=== PATIENT | male | born 1995 | race Caucasian/White ===

== ENCOUNTER → 2020-08-16 11:33 | Outpatient (BNVA) | payer MEDICARE, MEDICAID, SELFPAY | PROVIDERS: Family Provider Family Medicine; PCP Family Medicine; Visit Provider Specialist | DX: G40.309 Generalized idiopathic epilepsy and epileptic syndromes, not intractable, without status epilepticus (principal); Q87.0 Congenital malformation syndromes predominantly affecting facial appearance | CPT/HCPCS: 36415; 80164; 84460; 85025; 99204 ==

== ENCOUNTER 2020-08-16 14:49 | Outpatient (CLI) | payer MEDICARE, MEDICAID, SELFPAY ==
[2020-08-16 15:18] LABS: Basophils % 0.2 %; Eosinophils % 0.2 %; Hematocrit 44.9 % (42.0-52.0); Lymphocytes % 29.1 %; Mean Corpuscular HGB Conc 33.4 g/dL (30.0-36.0); Mean Corpuscular Hemoglobin 32.3 pg (28.0-34.0); Mean Corpuscular Volume 96.8 fL (80-94); Mean Platelet Volume 10.3 fL (7.4-10.4); Monocytes # 0.7 10^3/uL (0.2-0.9); Monocytes % 6.6 %; Neutrophils # 6.61 10^3/uL (1.8-7.7); Neutrophils % 63.6 %; Nucleated Red Blood Cells % 0 %; Platelet Count 184 10^3/cmm (130-400); Red Blood Count 4.64 10^6/uL (4.1-5.3); Red Cell Distribution Width 11.4 % (12.1-15.1); White Blood Count 10.4 10^3/uL (4.0-10.0)
[2020-08-16 15:35] LABS: Alanine Aminotransferase 20 U/L (0-41)
[2020-08-16 15:46] LABS: Valproic Acid Level 93.8 ug/mL (50-100)
== END 2020-08-16 14:50 | disposition home or self-care (01) ==
PROVIDERS: PCP Family Medicine; Visit Provider Specialist
DX: G40.309 Generalized idiopathic epilepsy and epileptic syndromes, not intractable, without status epilepticus (principal); Q87.0 Congenital malformation syndromes predominantly affecting facial appearance
CPT/HCPCS: 36415; 80164; 84460; 85025

== ENCOUNTER 2021-07-24 13:07 | Outpatient (CLI) | payer MEDICARE, MEDICAID, SELFPAY | END 2021-07-24 13:08 | disposition home or self-care (01) | PROVIDERS: PCP Family Medicine; Visit Provider Emergency Medicine | DX: I96 Gangrene, not elsewhere classified (principal); L89.312 Pressure ulcer of right buttock, stage 2 | CPT/HCPCS: 11042; 87070; 87077; 87176; 87186; 87205; G0463 ==

== ENCOUNTER 2021-07-31 13:37 | Outpatient (CLI) | payer MEDICARE, MEDICAID, SELFPAY | END 2021-07-31 13:38 | disposition home or self-care (01) | LOC: WOUND 13:38 | PROVIDERS: PCP Family Medicine; Visit Provider Emergency Medicine | DX: I96 Gangrene, not elsewhere classified (principal); L89.312 Pressure ulcer of right buttock, stage 2 | CPT/HCPCS: 11042 ==

== ENCOUNTER 2021-08-07 13:31 | Outpatient (CLI) | payer MEDICARE, MEDICAID, SELFPAY | END 2021-08-07 13:32 | disposition home or self-care (01) | LOC: WOUND 13:34 | PROVIDERS: PCP Family Medicine; Visit Provider Nurse Practitioner Family | DX: L89.313 Pressure ulcer of right buttock, stage 3 (principal) | CPT/HCPCS: 11042 ==

== ENCOUNTER 2021-08-14 14:41 | Outpatient (CLI) | payer MEDICARE, MEDICAID, SELFPAY | END 2021-08-14 14:42 | disposition home or self-care (01) | LOC: WOUND 14:43 | PROVIDERS: PCP Family Medicine; Visit Provider Emergency Medicine | DX: L89.313 Pressure ulcer of right buttock, stage 3 (principal) | CPT/HCPCS: 11042 ==

== ENCOUNTER → 2021-08-16 11:14 | Outpatient (BNVA) | payer MEDICARE, MEDICAID, SELFPAY | PROVIDERS: PCP Family Medicine; Visit Provider Specialist | DX: G40.309 Generalized idiopathic epilepsy and epileptic syndromes, not intractable, without status epilepticus (principal); Q87.0 Congenital malformation syndromes predominantly affecting facial appearance | CPT/HCPCS: 99214 ==

== ENCOUNTER 2021-08-21 14:45 | Outpatient (CLI) | payer MEDICARE, MEDICAID, SELFPAY | END 2021-08-21 14:46 | disposition home or self-care (01) | LOC: WOUND 14:46 | PROVIDERS: PCP Family Medicine; Visit Provider Nurse Practitioner Family | DX: L89.313 Pressure ulcer of right buttock, stage 3 (principal) | CPT/HCPCS: 11042; A6212 ==

== ENCOUNTER 2021-08-28 14:38 | Outpatient (CLI) | payer MEDICARE, MEDICAID, SELFPAY | END 2021-08-28 14:39 | disposition home or self-care (01) | LOC: WOUND 14:39 | PROVIDERS: PCP Family Medicine; Visit Provider Nurse Practitioner Family | DX: L89.313 Pressure ulcer of right buttock, stage 3 (principal) | CPT/HCPCS: 11042 ==

== ENCOUNTER 2021-09-05 14:03 | Outpatient (CLI) | payer MEDICARE, MEDICAID, SELFPAY | END 2021-09-05 14:04 | disposition home or self-care (01) | LOC: WOUND 14:04 | PROVIDERS: PCP Family Medicine; Visit Provider Nurse Practitioner Family | DX: L89.313 Pressure ulcer of right buttock, stage 3 (principal) | CPT/HCPCS: 11042 ==

== ENCOUNTER 2021-09-12 13:55 | Outpatient (CLI) | payer MEDICARE, MEDICAID, SELFPAY | END 2021-09-12 13:56 | disposition home or self-care (01) | LOC: WOUND 13:56 | PROVIDERS: PCP Family Medicine; Visit Provider Emergency Medicine | DX: L89.313 Pressure ulcer of right buttock, stage 3 (principal) | CPT/HCPCS: 11043; A6446 ==

== ENCOUNTER 2021-09-19 13:02 | Outpatient (CLI) | payer MEDICARE, MEDICAID, SELFPAY | END 2021-09-19 13:03 | disposition home or self-care (01) | LOC: WOUND 13:05 | PROVIDERS: PCP Family Medicine; Visit Provider Emergency Medicine | DX: L89.313 Pressure ulcer of right buttock, stage 3 (principal) | CPT/HCPCS: 99213 ==

== ENCOUNTER 2021-09-26 13:46 | Outpatient (CLI) | payer MEDICARE, MEDICAID, SELFPAY | END 2021-09-26 13:47 | disposition home or self-care (01) | LOC: WOUND 13:47 | PROVIDERS: PCP Family Medicine; Visit Provider Emergency Medicine | DX: L89.313 Pressure ulcer of right buttock, stage 3 (principal) | CPT/HCPCS: 11042 ==

== ENCOUNTER 2021-10-03 13:52 | Outpatient (CLI) | payer MEDICARE, MEDICAID, SELFPAY | END 2021-10-03 13:53 | disposition home or self-care (01) | LOC: WOUND 13:53 | PROVIDERS: PCP Family Medicine; Visit Provider Emergency Medicine | DX: L89.313 Pressure ulcer of right buttock, stage 3 (principal) | CPT/HCPCS: 11042 ==

== ENCOUNTER 2021-10-10 13:05 | Outpatient (CLI) | payer MEDICARE, MEDICAID, SELFPAY | END 2021-10-10 13:06 | disposition home or self-care (01) | LOC: WOUND 13:06 | PROVIDERS: PCP Family Medicine; Visit Provider Emergency Medicine | DX: L89.313 Pressure ulcer of right buttock, stage 3 (principal) | CPT/HCPCS: 11042 ==

== ENCOUNTER 2021-10-17 13:16 | Outpatient (CLI) | payer MEDICARE, MEDICAID, SELFPAY | END 2021-10-17 13:17 | disposition home or self-care (01) | LOC: WOUND 13:17 | PROVIDERS: PCP Family Medicine; Visit Provider Emergency Medicine | DX: L89.313 Pressure ulcer of right buttock, stage 3 (principal) | CPT/HCPCS: 11042 ==

== ENCOUNTER 2021-10-24 13:12 | Outpatient (CLI) | payer MEDICARE, MEDICAID, SELFPAY | END 2021-10-24 13:13 | disposition home or self-care (01) | LOC: WOUND 13:13 | PROVIDERS: PCP Family Medicine; Visit Provider Emergency Medicine | DX: L89.313 Pressure ulcer of right buttock, stage 3 (principal) | CPT/HCPCS: 99212; A6212 ==

== ENCOUNTER 2021-10-31 11:02 | Outpatient (CLI) | payer MEDICARE, MEDICAID, SELFPAY | END 2021-10-31 11:03 | disposition home or self-care (01) | LOC: WOUND 11:03 | PROVIDERS: PCP Family Medicine; Visit Provider Thoracic Surgery (Cardiothoracic Vascular Surgery) | DX: L89.313 Pressure ulcer of right buttock, stage 3 (principal) | CPT/HCPCS: 99212 ==

== ENCOUNTER → 2022-04-17 14:56 | Outpatient (BNVA) | payer MEDICARE, MEDICAID, SELFPAY | PROVIDERS: PCP Family Medicine; Visit Provider Specialist | DX: G40.309 Generalized idiopathic epilepsy and epileptic syndromes, not intractable, without status epilepticus (principal); Q87.0 Congenital malformation syndromes predominantly affecting facial appearance | CPT/HCPCS: 95816 ==

== ENCOUNTER → 2022-08-15 10:17 | Outpatient (BNVA) | payer MEDICARE, MEDICAID, SELFPAY | PROVIDERS: PCP Family Medicine; Visit Provider Specialist | DX: G40.309 Generalized idiopathic epilepsy and epileptic syndromes, not intractable, without status epilepticus (principal) | CPT/HCPCS: 99213 ==

== ENCOUNTER → 2023-08-14 10:55 | Outpatient (BNVA) | payer MEDICARE, MEDICAID, SELFPAY | PROVIDERS: PCP Family Medicine; Visit Provider Specialist | DX: G40.309 Generalized idiopathic epilepsy and epileptic syndromes, not intractable, without status epilepticus (principal) | CPT/HCPCS: 99214 ==

== ENCOUNTER 2023-10-29 12:53 | Emergency (ER) | payer MEDICARE, MEDICAID, SELFPAY ==
[2023-10-29] VITALS (35 sets, daily range): BP systolic 96–142; BP diastolic 67–92; PULSE 76–119; RESP 16–39; TEMP 36.7; O2SAT 96–100; BMI 19.5
[2023-10-29] MEDS: levETIRAcetam 1,000 MG/100 ML PREMIX 400 MG IV (13:19)
--- NOTE | 2023-10-29 13:34 | ED_ITS ---
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 Patient had seizures today they had used the rest of his rescue meds last night and another seizure today and had no rescue Diastat patient's seizures are now under control he is at his baseline here patient is nonverbal. No recent known illness. Review of Systems 2 General: Reports: ROS unobtainable due to mental status PFSH ED 2 PFSH: Social History Smoking and tobacco/nicotine status: never used tobacco/nicotine Physical Exam 2 Const: COMMON NORMALS: negative for patient oriented x3 HENMT: COMMON NORMALS: normocephalic and atraumatic HEAD & SCALP: n ormocephalic and atraumatic Eye: COMMON NORMALS: Equal, round and reactive pupils present and EOMs intact bilaterally PUPIL: Yes Equal, round and reactive pupils present Neck/C-Spine: COMMON NORMALS: full ROM and supple Chest: COMMONS NORMALS: normal inspection of the chest and normal palpation of entire chest wall Resp: COMMON NORMALS: normal respiratory effort, No retractions, No use of accessory muscles and clear to auscultation bilaterally AUSCULTATION: clear to auscultation bilaterally Cardio: COMMON NORMALS: regular rate, regular rhythm and No murmurs present (Cardio) RATE: regular rate RHYTHM: regular rhythm GI: COMMON NORMALS: Normal to inspection, nondistended, normoactive bowel sounds present, Soft to palpation, non-tender and no masses PALPATION: Yes Soft to palpation Neuro: COMMON NORMALS: negative for patient oriented x3 Psych: COMMON NORMALS: negative for mental status grossly normal Skin: COMMON NORMALS: no rashes or lesions noted and no wounds GENERAL SKIN EXAM: no rashes or lesions noted Course 2 Vital Signs: Vital signs: Vital Signs Temperature 98.0 F 10/29/23 13:01 Pulse Rate 81 10/29/23 15:25 Respiratory Rate 24 H 10/29/23 15:25 Blood Pressure 108/68 10/29/23 15:25 Pulse Oximetry 100 10/29/23 15:25 Oxygen Delivery Me thod Room Air 10/29/23 13:35 MDM - Seizure MDM Narrative Medical decision making narrative: Patient presents here after having a seizure he did not have his rescue meds at home he has been well-appearing here did observe him blood works normal we will write a prescription for Diastat patient stable for discharge at this time. Lab Data 10/29/23 13:41 10/29/23 13:41 Labs: Laboratory Results WBC 7.46 10^3/uL (3.29-11.43) 10/29/23 13:41 RBC 4.70 10^6/uL (3.85-5.65) 10/29/23 13:41 Hgb 15.20 g/dL (11.27-16.99) 10/29/23 13:41 Hct 43.9 % (37-53) 10/29/23 13:41 MCV 93.4 fl (82-101) 10/29/23 13:41 MCH 32.3 pg (27-33) 10/29/23 13:41 MCHC 34.6 g/dL (30-55) 10/29/23 13:41 RDW 11.7 % (12.1-15.1) L 10/29/23 13:41 Plt Count 164 10^3/cmm (157-399) 10/29/23 13:41 MPV 10.8 fL (7.4-10.4) H 10/29/23 13:41 Neut % (Auto) 72.2 % 10/29/23 13:41 Lymph % (Auto) 16.5 % 10/29/23 13:41 [place] % (Auto) 10.6 % 10/29/23 13:41 Eos % (Auto) 0.1 % 10/29/23 13:41 Baso % (Auto) 0.3 % 10/29/23 13:41 Neut # (Auto) 5.39 10^3/uL (1.8-7.7) 10/29/23 13:41 Lymph # (Auto) 1.2 10^3/uL (0.8-4.8) 10/29/23 13:41 [place] # (Auto) 0.8 10^3/uL (0.2-0.9) 10/29/23 13:41 Eos # (Auto) 0.0 10^3/uL (0.0-0.8) 10/29/23 13:41 Baso # (Auto) 0.0 10^3/uL (0.0-0.1) 10/29/23 13:41 Nucleated RBC % (auto) 0 % 10/29/23 13:41 Nucleated RBCs # 0.0 /100WBC 10/29/23 13:41 Sodium 138 mmol/L (136-145) 10/29/23 13:41 Potassium 4.2 mmol/L (3.5-5.1) 10/29/23 13:41 Chloride 101 mmol/L (98-107) 10/29/23 13:41 Carbon Dioxide 26 mmol/L (22-29) 10/29/23 13:41 Anion Gap 15.2 (5-19) 10/29/23 13:41 BUN 6 mg/dL (6-20) 10/29/23 13:41 Creatinine 0.5 mg/dL (0.7-1.2) L 10/29/23 13:41 GFR Calculation 201.0 mL/min (90-130) H 10/29/23 13:41 Glucose 101 mg/dL (65-115) 10/29/23 13:41 Calculated Osmolality 284 mOsm/kg (285-295) L 10/29/23 13:41 Calcium 9.3 mg/dL (8.5-10.5) 10/29/23 13:41 Total Bilirubin 0.8 mg/dL (0.15-1.2) 10/29/23 13:41 AST 31 U/L (0-40) 10/29/23 13:41 ALT 32 U/L (0-41) 10/29/23 13:41 Alkaline Phosphatase 58 U/L (40-130) 10/29/23 13:41 Total Protein 7.2 g/dL (6.6-8.7) 10/29/23 13:41 Albumin 4.7 g/dL (3.5-5.2) 10/29/23 13:41 Globulin 2.5 g/dL (1.3-4.6) 10/29/23 13:41 Valproic Acid 74.5 ug/mL (50-100) 10/29/23 13:41 No radiology studies performed this visit Discharge Plan Discharge Patient Disposition: Home Clinical Impression: Epileptic seizure Condition: Stable Prescriptions: New diazepam 5-7.5-10 mg kit 5 mg FL Q12H PRN (Reason: seizure activity) Qty: 1 1RF No Action levothyroxine 88 mcg tablet 88 mcg PO DAILY lactose-reduced food with fibr Liquid PO polyethylene glycol Liquid miscellaneous nystatin 100,000 unit/gram powder 1 applic topical DAILY ondansetron HCl 8 mg tablet 8 mg PO Q8H olopatadine 0.2 % drops 1 drp ophthalmic (eye) DAILY doxycycline hyclate 100 mg capsule 100 mg PO BID cetirizine 1 mg/mL solution 2.5 mg PO Q12H PRN famotidine 40 mg/5 mL (8 mg/mL) suspension 20 mg PO DAILY diazepam [Diastat AcuDial] 12.5-15-17.5-20 mg kit 20 mg FL Q12H PRN (Reason: seizure activity) Qty: 1 2RF multivitamin with minerals Liquid 10 ml PO DAILY hydroxyzine HCl 10 mg/5 mL solution PO montelukast 10 mg tablet PO levetiracetam 100 mg/mL solution PO divalproex [Depakote Sprinkles] 125 mg capsule, delayed rel sprinkle 250 mg PO TID Qty: 540 3RF trazodone 50 mg tablet See Rx Instructions .ROUTE .COMPLEX Qty: 30 11RF Dose Instruction: TAKE 1 TABLET BY MOUTH DAILY NEEDED FOR INSOMNIA; GIVE 1/2 TO 1 TABLET NEEDED FOR SLEEP Rx Instructions: TAKE 1 TABLET BY MOUTH DAILY NEEDED FOR INSOMNIA; GIVE 1/2 TO 1 TABLET NEEDED FOR SLEEP Discharge Orders: Discharge ED (Routine); Ordered 10/29/23 Ordered By: Josselyn Odom Referrals: Bebe Caldwell MD [Physician] - 1-3 days Rita Ortega MD [Primary Care Provider] - Discharge Diet: Advance as tolerated Discharge Activity: Resume usual activity Patient Instructions: Epilepsy (ED) Coding Level of Care Code ED Staff Registered Nurse for Chg Marlene
[2023-10-29] MEDS: LORazepam 2 mg/mL INJ 10 mL MDV IVP (13:46)
[2023-10-29 13:50] LABS: Basophils % 0.3 %; Eosinophils % 0.1 %; Hematocrit 43.9 % (37-53); Lymphocytes # 1.2 10^3/uL (0.8-4.8); Lymphocytes % 16.5 %; Mean Corpuscular HGB Conc 34.6 g/dL (30-55); Mean Corpuscular Hemoglobin 32.3 pg (27-33); Mean Corpuscular Volume 93.4 fl (82-101); Mean Platelet Volume 10.8 fL (7.4-10.4); Monocytes # 0.8 10^3/uL (0.2-0.9); Monocytes % 10.6 %; Neutrophils # 5.39 10^3/uL (1.8-7.7); Neutrophils % 72.2 %; Nucleated Red Blood Cells % 0 %; Platelet Count 164 10^3/cmm (157-399); Red Cell Distribution Width 11.7 % (12.1-15.1); White Blood Count 7.46 10^3/uL (3.29-11.43)
[2023-10-29 14:06] LABS: Alanine Aminotransferase 32 U/L (0-41); Albumin Level 4.7 g/dL (3.5-5.2); Alkaline Phosphatase 58 U/L (40-130); Anion Gap 15.2 (5-19); Aspartate Amino Transferase 31 U/L (0-40); Blood Urea Nitrogen 6 mg/dL (6-20); Calcium 9.3 mg/dL (8.5-10.5); Carbon Dioxide 26 mmol/L (22-29); Chloride 101 mmol/L (98-107); Creatinine Clr Calc Pharmacy 197.4087; Globulin 2.5 g/dL (1.3-4.6); Glucose 101 mg/dL (65-115); Osmolality Calculated 284 mOsm/kg (285-295); Potassium 4.2 mmol/L (3.5-5.1); Sodium 138 mmol/L (136-145); Total Bilirubin 0.8 mg/dL (0.15-1.2); Total Protein 7.2 g/dL (6.6-8.7)
[2023-10-29 15:33] LABS: Valproic Acid Level 74.5 ug/mL (50-100)
== END 2023-10-29 16:15 | disposition home or self-care (01) ==
PROVIDERS: Emergency Provider Emergency Medicine; PCP Family Medicine
DX: G40.909 Epilepsy, unspecified, not intractable, without status epilepticus (principal)
CPT/HCPCS: 36415; 80053; 80164; 85025; 96365; 96375; 99284; J1953; J2060

== ENCOUNTER → 2024-08-13 09:56 | Outpatient (BNVA) | payer MEDICARE, MEDICAID, SELFPAY | PROVIDERS: PCP Family Medicine; Visit Provider Specialist | DX: G40.309 Generalized idiopathic epilepsy and epileptic syndromes, not intractable, without status epilepticus (principal); R03.0 Elevated blood-pressure reading, without diagnosis of hypertension | CPT/HCPCS: 99213 ==

== ENCOUNTER → 2025-08-16 11:50 | Outpatient (BNVA) | payer MEDICARE, MEDICAID, SELFPAY | PROVIDERS: PCP Family Medicine; Visit Provider Specialist | DX: G40.309 Generalized idiopathic epilepsy and epileptic syndromes, not intractable, without status epilepticus (principal); R03.0 Elevated blood-pressure reading, without diagnosis of hypertension | CPT/HCPCS: 99213 ==